=== PATIENT | female | born 1950 | race Hispanic/Latino ===

== ENCOUNTER 2023-03-26 16:31 | Emergency (ER) | payer MEDICARE ==
[~2023-03-26] VITALS: Ht 154.9 cm; Wt 71.8 kg
[2023-03-26] MEDS: ACETAMINOPHEN 325 MG TAB PO ONE (17:40)
[2023-03-26] MEDS ORDERED: ACETAMINOPHEN 325 MG TAB ONE (17:40)
[2023-03-26 18:37] VITALS: O2SAT 98
[2023-03-26] MEDS ORDERED: CELEBREX100 MG PO (20:21)
== END 2023-03-26 20:36 | disposition home or self-care (01) ==
LOC: FSED 16:50
DX: S60.212A Contusion of left wrist, initial encounter (principal); S80.01XA Contusion of right knee, initial encounter; S83.8X1A Sprain of other specified parts of right knee, initial encounter; W01.0XXA Fall on same level from slipping, tripping and stumbling without subsequent striking against object, initial encounter; Y92.512 Supermarket, store or market as the place of occurrence of the external cause; M85.88 Other specified disorders of bone density and structure, other site
CPT/HCPCS: 99283